=== PATIENT | male | born 1940 | race Caucasian/White ===

== ENCOUNTER 2019-07-20 06:28 | Day surgery (SDC) | payer OTHER ==
[2019-07-17 16:06] LABS: Basophils % 0.5 % (0-1.3); Hematocrit 44.6 % (39.6-49.0); Lymphocytes % 27.1 % (15.3-44.8); MPV 8.1 fL (7.6-11.3); RBC Red Blood Cell Count 4.97 M/uL (4.33-5.43)
[2019-07-17 16:09] LABS: Protime INR 1.05
[2019-07-17 16:18] LABS: Potassium 4.3 mmol/L (3.5-5.1)
--- NOTE | 2019-07-17 16:26 | RAD REPORT ---
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 COMPARISON: Chest Pa And Lat (2 Views) dated 01/01/2016; CHEST PA AND LAT 2 VIEW dated 02/24/2010 TECHNIQUE: PA and lateral views of the chest were obtained. FINDINGS: The lungs are hyperexpanded compatible with COPD. The heart is upper limit of normal in si ze. No fracture or aggressive bony process. IMPRESSION: COPD without acute process identified.
--- NOTE | 2019-07-18 15:27 | EKG ---
Test Date: 2019-07-17 Test Time: 15:26:47 Emergency Vehicle Technician: HAMLET MEASUREMENT RESULTS: Intervals: Rate: 45 TN: 224 QRSD: 82 QT: 428 QTc: 370 [place]: P: 34 TN: 224 QRS: -33 T: 24 INTERPRETIVE STATEMENTS: Marked sinus bradycardia with 1st degree AV block Left axis deviation Abnormal ECG Compared to ECG 11/17/2002 05:18:00 First degree AV block now present Myocardial infarct finding no longer present Electronically Signed On 07-18-19 15:25:01 QUALITY ASSOCIATE by Chip Feliz
[2019-07-20] MEDS ORDERED: NA CHLORIDE 0.9% 500 ML ONE (06:55)
[2019-07-20] MEDS ORDERED: ATROPINE SULF 1 MG/10 ML SYR IV ONE (07:33)
[2019-07-20] MEDS ORDERED: MIDAZOLAM HCL 2 MG/2 ML INJ ONE ×2 (07:33→07:35)
[2019-07-20] MEDS ORDERED: FENTANYL CITR 100 MCG/2 ML ONE (07:33)
[2019-07-20] MEDS ORDERED: NA CHLORIDE 0.9% 0 ML ONE (07:36)
[2019-07-20] MEDS ORDERED: HEPA 1000U/500MLS 1,000 UNIT/500 ML BAG IV ONE (08:30)
[2019-07-20 08:57] VITALS: TEMP 97.8
[2019-07-20 09:41] VITALS: O2SAT 96
[2019-07-20 10:10] VITALS: BP 118/53
--- NOTE | 2019-07-20 18:57 | OP ---
Surgeon: Chip Feliz MD Museum Guide: Ms. Young. Patient will probably go home today and have an appointment with Cardiovascular Surgery in [place] in the near future. The films will be given to him directly. Reason For Admission: Left heart catheterization with selective coronary arteriogram and left ventri culogram. Indication: Chest pain, CAD, and positive stress test. Description Of Procedure: Patient was prepped and draped in the routine sterile fashion. Given Vers for sedation. Right common femoral artery access with a 6-Afghan sheath obtained. Angiography showed a patent iliac artery. StarClose was used to close the case. Davon catheter, 6-Afghan, left and right were used respectively for the left main and the right main. The RCA was subtotaled with CELESTINE 1 flow. 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 His left main was normal and circumflex had mild to moderate plaquing. LAD had a 99% occlusion from the mid LAD right after t he 1st diagonal all the way down to the distal LAD. The vessel probably appeared to be about 2 mm wi de; however, I think this is because the flow is so poor. LV gram was done showing normal ejection f raction, no wall motion abnormalities, and an end-diastolic pressure of 5 mmHg. There were no compli cations. Blood Loss: 5 mL. Postoperative Diagnosis: Severe coronary artery disease. Plan is for coronary artery bypass graft, probably a left internal mammary artery to the left anterio r descending and a vein graft to the posterior descending artery off the RCA. ADRIENNE/ZOILA Voice ID: [id number] Report ID: [id number]
== END 2019-07-20 10:17 | disposition home or self-care (01) ==
LOC: OR 06:28 → CCL 06:28
DX: I25.10 Atherosclerotic heart disease of native coronary artery without angina pectoris (principal); I25.82 Chronic total occlusion of coronary artery; I10 Essential (primary) hypertension; Z88.0 Allergy status to penicillin
CPT/HCPCS: 93005; 85025; 80048; 36415; 85610; 85730; 71046; 93458; C1893; J2250; J3010; J7040; J0583